=== PATIENT | female | born 1980 | race Caucasian/White ===

== ENCOUNTER 2022-01-11 13:17 | Emergency (ER) | payer SELFPAY ==
[2022-01-11 13:36] VITALS: BP 136/78; PULSE 54; RESP 14; TEMP 525.5; TEMP 978; O2SAT 97; BMI 24.0
--- NOTE | 2022-01-11 14:08 | CT_ITS ---
WS: [id number] CT ABDOMEN PELVIS TECHNIQUE: Contrast-enhanced CT of the abdomen and pelvis with coronal and sagittal reformatted image s. CLINICAL INFORMATION: umbilical hernia COMPARISON: None. DLP: 450.[address] scans at [facility] use at least one of these dose optimization techniques: automated e xposure control; mA and/or kV adjustment per patient size (includes targeted exams where dose is matc hed to clinical indication); or iterative reconstruction. FINDINGS: Tiny fat-containing umbilical hernia with a small RIGHT periumbilical fluid collection. No herniated bowel. Small periumbilical fluid collection measures 2.7 x 1.8 cm. Diffuse pancolonic constipation worse in the transverse colon. Normal appendix in the RIGHT lower pedro drant. Urine distended bladder. Slight bibasilar atelectasis. Chronic LEFT rib fractures with callus formation. Mild diffuse fatty infiltration liver. Normal portal vein and splenic vein. Normal gallbla dder. Normal GE junction. Food products in the stomach with fluid distention. Normal caliber abdomina l aorta. Adrenal glands are normal. Normal renal parenchymal enhancement. No hydronephrosis. CT/CT abdomen pelvis w con* [id number] IMPRESSION: 1. Tiny fat-containing umbilical hernia with a small RIGHT periumbilical fluid collection measuring 1.8 x 2.7 CM. No herniated bowel. 2. Diffuse pancolonic constipation worse involving the transverse colon. 3. Normal appendix in the RIGHT lower quadrant. 4. Urine distended bladder.
--- NOTE | 2022-01-11 14:14 | W.ED.WOUNDLC ---
Documented by User: Jeny Thomas PA-C 01/11/22 15:47 HPI - Wound/Laceration General: Chief Complaint: Wound/Laceration Stated Complaint: High blood pressure, possible hernia bleed Time Seen by Provider: 01/11/22 13:45 Source: patient Mode of arrival: other (in county custody) Limitations: no limitations History of Present Illness: 41-year-old female presents to the ER today in custody of the local [facility] for drainage and swelling of the umbilicus. Patient reports she thinks she has a hernia and over the last couple of days it has become very firm and tender. Patient reports some mild draining out of it too. She reports elevated blood pressure [facility] the pen[facility]entiary however BP improved here. Patient reports she did feel odd while being transported here however that feeling also went away. Patient denies any change in bowel or bladder habits. Denies any fever or chills. Review of Systems General: Reports: 10 or more systems reviewed and unremarkable except in HPI and below Physical Exam Const: COMMON NORMALS: no acute distress, average body habitus, patient oriented x3, no limitations, healthy appearing, alert and well nourished Neck/C-Spine: COMMON NORMALS: full ROM Resp: COMMON NORMALS: normal respiratory effort, No retractions and clear to auscultation bilaterally AUSCULTATION: clear to auscultation bilaterally Cardio: COMMON NORMALS: regular rate and regular rhythm RATE: regular rate RHYTHM: regular rhythm GI: OTHER: Patient has what appears to be an umbilical hernia however it is very firm and not reducible. Patient is also very tender when touching the firm knot. Otherwise abdominal exam is normal Back/Pelvis: COMMON NORMALS: thoraco-lumbar ROM normal Extremity: COMMON NORMALS: normal to inspection and full ROM Neuro: COMMON NORMALS: patient oriented x3 SENSORIUM/ORIENTATION: Yes alert Psych: COMMON NORMALS: mental status grossly normal, Normal thought process present and cooperative THOUGHT PROCESS: Normal thought process present Skin: COMMON NORMALS: no rashes or lesions noted and no wounds GENERAL SKIN EXAM: no rashes or lesions noted Course ED course: He -oqkv-dal female presents to the ER today with a possible umbilical hernia. Patient reports it has been there for some time however not ever been hard and painful. She reports over the last couple days it has become very firm and to touch it hurts. Patient also reports an elevated blood pressure while at the [facility] however here is normal. Patient also reports feeling funny while being transported here but cannot elaborate further other than to say she had a funny feeling. Patient reports normal bowel movements. Patient is eating and drinking okay. We will get a CT abdomen pelvis given the firm knot in the umbilicus, I suspect possible incarcerated bowel inside the umbilical hernia. We will also get lab work at this time. Vital Signs: Vital signs: Vital Signs Temperature 98.2 F 01/11/22 14:16 Pulse Rate 53 L 01/11/22 14:16 Respiratory Rate 14 01/11/22 13:36 Blood Pressure 126/79 01/11/22 14:16 Pulse Oximetry 97 01/11/22 14:16 Oxygen Delivery Me thod 01/11/22 14:16 MDM - Wound/Laceration Medical Decision Making 41-year-old female presents to the ER today with a possible umbilical hernia. Patient reports it has been there for some time however not ever been hard and painful. She reports over the last couple days it has become very firm and to touch it hurts. Patient also reports an elevated blood pressure while at the penit[facility]iary however here is normal. Patient also reports feeling funny while being transported here but cannot elaborate further other than to say she had a funny feeling. Patient reports normal bowel movements. Patient is eating and drinking okay. We will get a CT abdomen pelvis given the firm knot in the umbilicus, I suspect possible incarcerated bowel inside the umbilical hernia. We will also get lab work at this time. Labs are unremarkable. A fat-containing umbilical hernia with small fluid collection. This is a probable small abscess given some of the external drainage noted. We will start patient on clindamycin at this time. Recommended Tylenol or Motrin for pain. Follow-up with physician in 4 to 7 days. Return to the ER with new or worsening symptoms. Patient verbalized understanding and was in agreement with this treatment plan. Lab Data : 01/11/22 14:24 Radiology Impressions Abdomen/Pelvis CT 01/11/22 14:08 IMPRESSION: 1. Tiny fat-containing umbilical hernia with a small RIGHT periumbilical fluid collection measuring 1.8 x 2.7 CM. No herniated bowel. 2. Diffuse pancolonic constipation worse involving the transverse colon. 3. Normal appendix in the RIGHT lower quadrant. 4. Urine distended bladder. Laboratory Results Sodium 142 mmol/L (136-145) 01/11/22 14:24 Potassium 4.3 mmol/L (3.5-5.1) 01/11/22 14:24 Chloride 104 mmol/L (98-107) 01/11/22 14:24 Carbon Dioxide 27 mmol/L (22-29) 01/11/22 14:24 Anion Gap 15.3 (5-19) 01/11/22 14:24 BUN 8 mg/dL (6-20) 01/11/22 14:24 Creatinine 0.6 mg/dL (0.5-0.9) 01/11/22 14:24 GFR Calculation 110.7 mL/min (90-130) 01/11/22 14:24 Glucose 114 mg/dL (65-115) 01/11/22 14:24 Calculated Osmolality 293 mOsm/kg (285-295) 01/11/22 14:24 Calcium 9.1 mg/dL (8.5-10.5) 01/11/22 14:24 Critical Care Time Critical Care Time: Critical Care Time: No Discharge Plan Discharge Patient Disposition: Home Clinical Impression: Hernia, umbilical, Abscess or cellulitis of umbilicus Condition: Stable Prescriptions: New clindamycin HCl 300 mg capsule 300 mg PO Q6H 7 Days Qty: 28 0RF Discharge Orders: Discharge ED (Routine); Ordered 01/11/22 Ordered By: Jeny Thomas Discharge Diet: Usual diet Discharge Activity: Resume usual activity Patient Instructions: Opioid Safety Activity Restrictions/Additional Instructions: Antibiotics as prescribed. Ibuprofen or Tylenol recommended for pain. Follow-up with physician in 4 to 7 days. Return to the ER with new or worsening symptoms. Coding Level of Care Code ED Explosive Operator for Chg Fwd Exam Comprehensive Documented by User: Minesh Ramirez DO 01/12/22 13:08 HPI - Wound/Laceration General: Chief Complaint: Wound/Laceration Stated Complaint: High blood pressure, possible hernia bleed Time Seen by Provider: 01/11/22 13:45 Course Vital Signs: Vital signs: Vital Signs Temperature 98.2 F 01/11/22 14:16 Pulse Rate 53 L 01/11/22 14:16 Respiratory Rate 14 01/11/22 13:36 Blood Pressure 126/79 01/11/22 14:16 Pulse Oximetry 97 01/11/22 14:16 Oxygen Delivery Me thod 01/11/22 14:16 MDM - Wound/Laceration Medical Decision Making 41-year-old female presents to the ER today with a possible umbilical hernia. Patient reports it has been there for some time however not ever been hard and painful. She reports over the last couple days it has become very firm and to touch it hurts. Patient also reports an elevated blood pressure while at the [facility]iary however here is normal. Patient also reports feeling funny while being transported here but cannot elaborate further other than to say she had a funny feeling. Patient reports normal bowel movements. Patient is eating and drinking okay. We will get a CT abdomen pelvis given the firm knot in the umbilicus, I suspect possible incarcerated bowel inside the umbilical hernia. We will also get lab work at this time. Labs are unremarkable. A fat-containing umbilical hernia with small fluid collection. This is a probable small abscess given some of the external drainage noted. We will start patient on clindamycin at this time. Recommended Tylenol or Motrin for pain. Follow-up with physician in 4 to 7 days. Return to the ER with new or worsening symptoms. Patient verbalized understanding and was in agreement with this treatment plan. Chart reviewed and patient discussed with midlevel. Agree with assessment and plan. Review of the CT shows that the abscess is subcutaneous reviewing the radiology report there is no mention of a communicating with the hernia itself is adjacent to it and there is no mention of that having any peritoneal involvement. Vital signs are stable. 01/12/2022 contacted the facility where she is incarcerated. They verified she does not have a fever she has not had any further symptoms. We will make a referral to general surgery to evaluate for umbilical hernia and the abdominal wall abscess. Medical Records I reviewed the patient's medical records. Lab Data I reviewed the patient's lab results. : 01/11/22 14:24 Radiology Impressions Abdomen/Pelvis CT 01/11/22 14:08 IMPRESSION: 1. Tiny fat-containing umbilical hernia with a small RIGHT periumbilical fluid collection measuring 1.8 x 2.7 CM. No herniated bowel. 2. Diffuse pancolonic constipation worse involving the transverse colon. 3. Normal appendix in the RIGHT lower quadrant. 4. Urine distended bladder. Laboratory Results Sodium 142 mmol/L (136-145) 01/11/22 14:24 Potassium 4.3 mmol/L (3.5-5.1) 01/11/22 14:24 Chloride 104 mmol/L (98-107) 01/11/22 14:24 Carbon Dioxide 27 mmol/L (22-29) 01/11/22 14:24 Anion Gap 15.3 (5-19) 01/11/22 14:24 BUN 8 mg/dL (6-20) 01/11/22 14:24 Creatinine 0.6 mg/dL (0.5-0.9) 01/11/22 14:24 GFR Calculation 110.7 mL/min (90-130) 01/11/22 14:24 Glucose 114 mg/dL (65-115) 01/11/22 14:24 Calculated Osmolality 293 mOsm/kg (285-295) 01/11/22 14:24 Calcium 9.1 mg/dL (8.5-10.5) 01/11/22 14:24 Discharge Plan Discharge Patient Disposition: Home Clinical Impression: Hernia, umbilical, Abscess or cellulitis of umbilicus Condition: Stable Prescriptions: New clindamycin HCl 300 mg capsule 300 mg PO Q6H 7 Days Qty: 28 0RF Discharge Orders: Discharge ED (Routine); Ordered 01/11/22 Ordered By: Jeny Thomas Discharge Diet: Usual diet Discharge Activity: Resume usual activity Patient Instructions: Opioid Safety Activity Restrictions/Additional Instructions: Antibiotics as prescribed. Ibuprofen or Tylenol recommended for pain. Follow-up with physician in 4 to 7 days. Return to the ER with new or worsening symptoms. Coding Level of Care Code ED Explosive Operator for Kim Fwd Exam Comprehensive
[2022-01-11 14:16] VITALS: BP 126/79; PULSE 53; TEMP 36.8; O2SAT 97
[2022-01-11 15:01] LABS: Anion Gap 15.3 (5-19); Blood Urea Nitrogen 8 mg/dL (6-20); Calcium 9.1 mg/dL (8.5-10.5); Carbon Dioxide 27 mmol/L (22-29); Chloride 104 mmol/L (98-107); Glomerular Filtration Rate 110.7 mL/min (90-130); Glucose 114 mg/dL (65-115); Osmolality Calculated 293 mOsm/kg (285-295); Potassium 4.3 mmol/L (3.5-5.1); Sodium 142 mmol/L (136-145)
[2022-01-11] MEDS: iohexol 350 mg/mL 100 mL Btl IV (15:04)
--- NOTE | 2022-01-14 14:57 | DCPLANNER ---
Addendum entered by Krystal Powell 01/31/22 14:33: Patient had a follow up appointment scheduled with general surgery - patient did attend appointment. Addendum entered by Krystal Powell 01/16/22 15:18: Patient has a follow up appointment scheduled for Tuesday, January 25, [address]22 at 9:[address] Jenkins with general surgery. Clinic will call patient with appointment information. Original Note: accounts manager had message to schedule a follow up appointment for patient with general surgery. accounts manager sent patients information to the front office staff at general surgery. Patients information will be printed and reviewed. Clinic will call patient with appointment information.
== END 2022-01-11 15:52 | disposition home or self-care (01) ==
PROVIDERS: Emergency Provider Physician Assistant
DX: K42.9 Umbilical hernia without obstruction or gangrene (principal); L02.216 Cutaneous abscess of umbilicus; L03.316 Cellulitis of umbilicus
CPT/HCPCS: 36415; 74177; 80048; 99285; Q9967